=== PATIENT | female | born 1945 | race Caucasian/White ===

== ENCOUNTER → 2016-07-11 | Day surgery (SDC) | payer MEDICARE ==
[~2016-07-11] MED LIST: APREPITANT 40 MG CAP ONE; ISOSULFAN BLUE 50 MG/5 ML VIAL SQ ONE; KETOROLAC TROMETHAMINE 30 MG/ML (IVP) VIAL IV PUSH ONE; LIDOCAINE 1%/EPINEPHrine 1:100,000 SOLN 20 ML VIAL ONE; ONDANSETRON HCL 4 MG/2 ML VIAL IV PUSH ONE; PROPOFOL 100 MG/10 ML INJ IV ONE; ceFAZolin 2 GM PREMIX 50 ML ONE
--- NOTE | 2016-07-11 17:14 | TN ---
cc: DAV ADAMSON M.D. DATE OF SURGERY: 07/11/2016 PREOPERATIVE DIAGNOSIS Left breast infiltrating lobular carcinoma. POSTOPERATIVE DIAGNOSIS Left breast infiltrating lobular carcinoma. PROCEDURE Injection of blue dye left breast, left axillary sentinel lymph node biopsy, left breast needle-localized lumpectomy, hidden scar technique. SURGEON Dr. Dav Adamson. GAS TORCH SOLDERER: JOSE Rodriguez. ANESTHESIA: General. INDICATIONS: The patient is a very pleasant 71 year-old woman familiar to me from laparoscopic cholecystectomy who was incidentally discovered to have a new density on screening mammography, underwent diagnostic mammography and ultrasonography. Ultrasound guided core biopsy demonstrated invasive lobular carcinoma 0.6 cm, ER/VT positive, HER2/terese negative. MRI demonstrated no additional findings. Plans were made for breast conservation therapy. INTRAOPERATIVE FINDINGS: Left axillary sentinel lymph node x1 with 10-second count 4249, blue stained node sent to pathology. The left breast lumpectomy specimen sent was a short stitch superior anterior long stitch lateral posterior. Additional inferior and lateral margins were placed and a short suture was placed on the new inferior margin and a long suture on the new lateral margin. These specimens were sent to pathology after imaging of the needle localization specimen. The specimen demonstrated the area of concern within the lumpectomy tissue, as confirmed by Dr. Whittaker. ESTIMATED BLOOD LOSS: Less than 5 mL DESCRIPTION OF PROCEDURE IN DETAIL The patient was identified as Kateryna Brown, taken to the operating room, placed in supine position. Sequential compression devices were placed on bilateral lower extremities. The patient had undergone needle localization as well as lymphoscintigraphy in the radiology department. Following induction of adequate general anesthesia a time-out procedure was performed. Following completion of time-out procedure to everyone's satisfaction within the room, the left breast skin was prepped with alcohol swab and 5 cc of Isosulfan blue dye was injected in the peritumoral and subareolar positions. The patient's left breast and axilla were then prepped and draped in the usual sterile fashion with Betadine. Using the Neoprobe, increase uptake in axilla was identified and the proposed axillary incision was made with a marking pen and infiltrated with local anesthetic. Incision was carried out with a scalpel and hemostasis controlled with electrocautery. Dissection continued posteriorly through the subcutaneous fatty tissue until the axilla tissue was identified. The Neoprobe was used to identify increase uptake and blue stain lymphatics were identified. They were followed to the sentinel lymph node which was from surrounding tissues using electrocautery. The lymphovascular structures were ligated with 3-0 Vicryl ligature. A 10-second count was performed and the sentinel lymph node was passed off the field. Detailed further examination visually with palpation and with the Neoprobe demonstrated no additional increased uptake consistent with a second sentinel lymph node. The only increase uptake was inferiorly towards the tumor. The wound was irrigated copiously with saline. Small bleeding points were controlled with electrocautery. Once the wound was assured to be dry, 3 cc of local anesthetic was placed within the wound and the wound was closed in two layers with 3-0 Vicryl and 4-0 Monocryl. Attention was then turned to the hidden scar lumpectomy. Proposed periareolar incision along the superior lateral border of the areolar was made with a marking pen, infiltrated with local anesthetic. The incision was carried out with a scalpel. Hemostasis controlled with electrocautery. Dissection continued posteriorly towards the localization needle using electrocautery. The lighted retractor was used to assist in the dissection. The localization needle was divided to the level of the skin brought into the surgical field and a generous lumpectomy specimen was removed. There was generous amount of tissue superiorly and medially down to the pectoralis muscle but less tissue removed laterally and inferiorly. Therefore, once the lumpectomy specimen was removed and it was marked as discussed above, and the inferior lateral margin was removed using electrocautery. The specimen was marked with a short stitch on the new inferior margin, a long stitch on the new lateral margin. The wound was irrigated copiously with saline, visually and palpably inspected, and no additional abnormal tissue was identified. An oncoplastic closure was performed mobilizing the breast tissue off of the pectoralis muscle and suturing it together to cover the pectoralis muscle using interrupted 3-0 Vicryl sutures. Local anesthetic was placed within the remaining lumpectomy cavity and 3-0 Vicryl and 4-0 Monocryl were used to close the periareolar incision. Dressings were applied at both locations with Mastisol and half inch brown Steri-Strips. Tegaderm with Telfa was placed over the axillary incision, 4x4 and Tegaderm were placed over the periareolar incision. The patient tolerated the procedures without apparent complication. Sponge, needle and instrument counts were correct at the end of the case. The surgical procedure was assisted by my nurse practitioner. The presence of my CLASSIFIER was necessary throughout the case for exposure of the sentinel lymph mode and the lumpectomy specimens. My CLASSIFIER assisted me throughout the duration of this procedure. The skill set of the nurse practitioner was medically necessary to complete the procedure. During the surgical case, the surgical aide was working at the back table and providing the nurse practitioner and myself with appropriate instrumentation as the nurse practitioner was directly assisting me. MD ROBERTO Hernandez/WALI /3:34 PM /4:18 PM
== END | disposition home or self-care (01) ==
LOC: ESDC 10:06
PROVIDERS: ATTEND Surgery Trauma Surgery
DX: C50.912 Malignant neoplasm of unspecified site of left female breast (principal)
CPT/HCPCS: 00400; 01610; 19125; 38525; 38792; 88307; J0690; J1885; J2405; J3010; J8501; Q9968

== ENCOUNTER → 2016-07-19 | Day surgery (SDC) | payer MEDICARE ==
[~2016-07-19] MED LIST changes: -ISOSULFAN BLUE 50 MG/5 ML VIAL SQ ONE; -KETOROLAC TROMETHAMINE 30 MG/ML (IVP) VIAL IV PUSH ONE; +LACTATED RINGER'S 1000 ML INJ 1,000 ML ONE; -ONDANSETRON HCL 4 MG/2 ML VIAL IV PUSH ONE; -PROPOFOL 100 MG/10 ML INJ IV ONE; +PROPOFOL 500 MG/50 ML BTL IV ONE
--- NOTE | 2016-07-19 16:39 | TN ---
cc: DAV ADAMSON M.D. DATE OF SURGERY: 07/19/2016 PREOPERATIVE DIAGNOSIS Infiltrating lobular carcinoma, left breast, with positive inferior margin. POSTOPERATIVE DIAGNOSES Infiltrating lobular carcinoma, left breast, with positive inferior margin. PROCEDURE: Left breast reexcision inferior margin. SURGEON Dr. Dav Adamson ANESTHESIA: TIVA. INDICATIONS: This is a very pleasant 71 year-old woman who was recently diagnosed with infiltrating lobular carcinoma of the left breast. She underwent lumpectomy and sentinel lymph node biopsy and final pathology demonstrated positive inferior margin. Plans are made for reexcision of the inferior margin. INTRAOPERATIVE FINDINGS: Reexcision left breast lumpectomy specimen sent with a short suture on the new inferior medial margin and a long suture on the new inferior lateral margin. ESTIMATED BLOOD LOSS: Less than 5 mL SHOTBLAST OPERATOR: JOSE Rodriguez The surgical procedure was assisted by the nurse practitioner. My IMPLEMENTATION SPECIALIST's presence was necessary throughout this case for providing adequate visualization of this hidden scar, reexcision lumpectomy. My nurse practitioner assisted me throughout the duration of the procedure and her skill set was medically necessary to complete the procedure. During the surgical case, the cogeneration technician was working at the back table providing appropriate instrumentation and the nurse practitioner was directly assisting me. DESCRIPTION OF PROCEDURE IN DETAIL The patient identified as Kateryna Brown, taken to the operating room, placed in supine position. Sequential compression devices were placed on bilateral lower extremities. Following induction of adequate anesthesia, intravenous by Anesthesia the left breast was prepped and draped in the usual sterile fashion with Betadine. A time-out procedure was performed. Following completion of time-out procedure to everyone's satisfaction within the room 1% lidocaine with epinephrine was infiltrated diffusely around the area of proposed surgery. The previous incision was opened with a scalpel. Dissection continued posteriorly into the lumpectomy cavity and the fluid in the cavity was suctioned out. The inferior margin was clearly identified and a generous portion of tissue was excised lateral to medial using electrocautery and the lighted retractor. The specimen was removed in its entirety, marked with silk suture as discussed above and sent to pathology. Visual and palpable inspection demonstrated no residual abnormal tissue. The wound was irrigated copiously with saline. Small bleeding points were controlled with electrocautery. A modified oncoplastic closure was performed mobilizing the breast tissue off the pectoralis muscle posteriorly and suturing it together with interrupted 3-0 Vicryl sutures. About 5 cc of local anesthetic was placed within the wound and more superficial breast tissue inferior to superior was sutured with interrupted 2-0 Vicryl suture. No skin dimpling or indentations were created by the closure. 3-0 Vicryl was placed in the deep dermis and 4-0 Monocryl subcuticular position on the skin. Dressings were applied, Mastisol half inch brown Steri-Strips, gauze and Tegaderm. The patient tolerated the procedures without apparent complication. Sponge, needle and instrument counts were correct at the end of the case. MD ROBERTO Hernandez/WALI /3:57 PM /4:30 PM
== END | disposition home or self-care (01) ==
LOC: ESDC 13:48
PROVIDERS: ATTEND Surgery Trauma Surgery
DX: C50.912 Malignant neoplasm of unspecified site of left female breast (principal)
CPT/HCPCS: 00400; 19301; 88307; J0690; J3010; J7120; J8501